=== PATIENT | male | born 1985 | race African-American/Black ===

== ENCOUNTER 2018-12-12 06:56 | Emergency (ER) | payer SELFPAY | END 2018-12-12 07:20 | disposition home or self-care (01) | LOC: NAV ERS 06:56 | DX: B34.9 Viral infection, unspecified (principal); Z87.891 Personal history of nicotine dependence | CPT/HCPCS: 99283 ==

== ENCOUNTER 2020-04-04 01:39 | Emergency (ER) | payer SELFPAY ==
[2020-04-04] MEDS ORDERED: diphenhydrAMINE 25 MG CAP ONE (02:18)
[2020-04-04] MEDS ORDERED: Sulfameth/Trimethoprim DS 800-160mg TAB ONE (02:18)
== END 2020-04-04 02:25 | disposition home or self-care (01) ==
LOC: NAV ERS 01:39
DX: S50.361A Insect bite (nonvenomous) of right elbow, initial encounter (principal); F17.210 Nicotine dependence, cigarettes, uncomplicated
CPT/HCPCS: 10060; 87070; 87077; 87186; 87205; Q0163

== ENCOUNTER 2020-05-03 20:39 | Emergency (ER) | payer SELFPAY | END 2020-05-03 21:31 | disposition home or self-care (01) | LOC: NAV ERS 20:39 | DX: K02.9 Dental caries, unspecified (principal); F17.210 Nicotine dependence, cigarettes, uncomplicated | CPT/HCPCS: 99281 ==

== ENCOUNTER 2020-05-03 22:38 | Emergency (ER) | payer SELFPAY | END 2020-05-03 23:00 | disposition home or self-care (01) | LOC: NAV ERS 22:38 | DX: K02.9 Dental caries, unspecified (principal); F17.210 Nicotine dependence, cigarettes, uncomplicated | CPT/HCPCS: 99283 ==

== ENCOUNTER 2020-06-04 07:27 | Emergency (ER) | payer OTHER, SELFPAY | END 2020-06-04 08:08 | disposition home or self-care (01) | LOC: NAV ERS 07:27 | DX: A08.4 Viral intestinal infection, unspecified (principal); F17.210 Nicotine dependence, cigarettes, uncomplicated | CPT/HCPCS: 87635; 99284; U0003 ==

== ENCOUNTER 2020-06-24 05:08 | Emergency (ER) | payer SELFPAY ==
[2020-06-24] MEDS ORDERED: Lidocaine 1% w/Epinephrine 1:100K 30 ML VIAL ONE (05:23)
[2020-06-24] MEDS ORDERED: Bacitracin 1 PK ONE (06:28)
== END 2020-06-24 06:40 | disposition home or self-care (01) ==
LOC: NAV ERS 05:08
DX: S81.811A Laceration without foreign body, right lower leg, initial encounter (principal); F17.210 Nicotine dependence, cigarettes, uncomplicated; W26.0XXA Contact with knife, initial encounter
CPT/HCPCS: 12002; J2001

== ENCOUNTER 2024-08-08 04:22 | Emergency (ER) | payer SELFPAY ==
[2024-08-08] MEDS ORDERED: Famotidine 20 MG TAB ONE (04:43)
== END 2024-08-08 04:51 | disposition home or self-care (01) ==
LOC: NAV ERS 04:22
DX: K21.00 Gastro-esophageal reflux disease with esophagitis, without bleeding (principal); F17.200 Nicotine dependence, unspecified, uncomplicated
CPT/HCPCS: 99283

== ENCOUNTER 2024-09-13 01:28 | Emergency (ER) | payer SELFPAY ==
[2024-09-13] MEDS ORDERED: Ondansetron ODT 4 MG TAB ONE (01:50)
[2024-09-13 02:33] LABS: #Eosinophils 0.1 thou/uL (0.0-0.7); #Lymphocytes 1.1 thou/uL (1.20-3.40); #Monocytes 0.7 thou/uL (0.11-0.59); #Neutrophils 3.6 thou/uL (1.40-6.50); %Basophils 0.7 % (0.0-1.0); %Eosinophils 1.6 % (0.0-10.0); %Lymphocytes 19.7 % (21.0-51.0); %Monocytes 11.9 % (0.0-10.0); Hematocrit 49.5 % (42.0-52.0); Hemoglobin 16.5 g/dL (14.0-18.0); Mean Corpuscular HGB CONC 33.3 g/dL (32.0-36.0); Mean Corpuscular Hemoglobin 29.3 pg (27.0-31.0); Mean Corpuscular Volume 88.1 fl (78.0-98.0); Mean Platelet Volume 7.4 fL (7.4-10.4); Platelet Count 220 10x3/uL (130-400); Red Blood Cell (RBC) Count 5.61 mill/uL (4.70-6.10); White Blood Cell (WBC) Count 5.5 10x3/uL (4.8-10.8)
[2024-09-13 02:39] LABS: ALT (SGPT) 34 U/L (8-55); AST (SGOT) 26 U/L (5-34); Albumin 3.7 g/dL (3.5-5.0); Alkaline Phosphatase 58 U/L (40-110); Anion Gap 14 mmol/L (10-20); BUN (Urea Nitrogen) 10 mg/dL (8.9-20.6); Bilirubin, Total 1.7 mg/dL (0.2-1.2); Calc. Creatinine Clearance 0 mL/min (70-130); Calcium 9.4 mg/dL (7.8-10.44); Carbon Dioxide 24 mmol/L (22-29); Chloride 101 mmol/L (98-107); Estimated GFR 71; Globulin 3.7 g/dL (2.4-3.5); Glucose 105 mg/dL (70-105); Lipase 18 U/L (8-78); Potassium 3.2 mmol/L (3.5-5.1); Protein, Total 7.4 g/dL (6.0-8.3); Sodium 136 mmol/L (136-145)
[2024-09-13 03:20] LABS: Bilirubin Small (Negative); Blood, Urine Negative (Negative); Clarity Clear (Clear); Glucose, Urine (Dipstick) Negative (Negative); Ketone, Urine Trace mg/dL (Negative); Leukocyte Negative (Negative); Nitrite Negative (Negative); Protein, Urine (Dipstick) 30 mg/dL (Neg-Trace); Specific Gravity, Urine 1.025 (1.005-1.030)
[2024-09-13 03:23] LABS: Bacteria/HPF None Seen HPF (None Seen); CAUTI Indications for Culture Pelvic or flank pain; Mucous/LPF 2+ LPF (<2+); RBC/HPF None Seen HPF (0-3); Squamous Epithelial None Seen HPF (0-3); WBC/HPF None Seen HPF (0-3)
[2024-09-13 03:24] LABS: Urine Culture Reflex No No
[2024-09-13] MEDS ORDERED: Loperamide HCl 2 MG CAP ONE (03:41)
[2024-09-14 15:03] LABS: Campy jejuni + coli by PCR Negative (Negative); STEC Shiga Toxin 1+2 Negative (Negative); Salmonella spp. by PCR Negative (Negative); Shigella spp + EIEC by PCR Negative (Negative)
== END 2024-09-13 04:06 | disposition home or self-care (01) ==
LOC: NAV ERS 01:28
DX: A08.4 Viral intestinal infection, unspecified (principal); F17.210 Nicotine dependence, cigarettes, uncomplicated
CPT/HCPCS: 36415; 80053; 81001; 83690; 85025; 87505; 99284; Q0162

== ENCOUNTER 2024-09-29 10:47 | Emergency (ER) | payer OTHER, SELFPAY ==
[2024-09-29] MEDS ORDERED: Naproxen 500 MG TAB ONE (12:00)
== END 2024-09-29 12:24 | disposition home or self-care (01) ==
LOC: NAV ERS 10:47
DX: S16.1XXA Strain of muscle, fascia and tendon at neck level, initial encounter (principal); S39.012A Strain of muscle, fascia and tendon of lower back, initial encounter; M51.379 Other intervertebral disc degeneration, lumbosacral region without mention of lumbar back pain or lower extremity pain; F17.210 Nicotine dependence, cigarettes, uncomplicated; V89.2XXA Person injured in unspecified motor-vehicle accident, traffic, initial encounter
CPT/HCPCS: 72125; 72131